=== PATIENT | female | born 1960 ===

== ENCOUNTER 2017-12-10 14:58 | Emergency (ER) | payer MEDICAID ==
[2017-12-10 15:13] VITALS: RESP 16; TEMP 98.4; O2SAT 98
[2017-12-10] MEDS ORDERED: Sodium Chloride 0.9% 500 ML IV STA ×2 (16:07→18:47)
--- NOTE | 2017-12-10 16:13 | ED PDOC ---
HPI: Female Pain Time Seen by Provider: 12/10/17 15:41 Chief Complaint (Nursing): Female Genitourinary Chief Complaint (Provider): Flank pain History Per: Patient History/Exam Limitations: no limitations Additional Complaint(s): Pt reports R flank pain X 1 week, worse in past 3 days, associated with dysuria. Denies fever, nausea, vomiting, abdominal pain, hematuria, vaginal discharge. Has not taken anything for pain. Past Medical History Reviewed: Nursing Documentation, Vital Signs Vital Signs: Last Vital Signs Temp 98.4 F 12/10/17 15:10 Pulse 87 12/10/17 15:10 Resp 16 12/10/17 15:10 BP 115/78 12/10/17 15:10 Pulse Ox 98 12/10/17 15:10 - Medical History PMH: No Chronic Diseases - Surgical History Other surgeries: Hysterectomy - Family History Family History: States: Unknown Family Hx - Social History Current smoker - smoking cessation education provided: No Alcohol: None - Home Medications Home Medications: Ambulatory Orders Medication Instructions Recorded Ciprofloxacin [Cipro] 500 mg PO BID #10 tab 12/10/17 Ibuprofen [Motrin] 600 mg PO Q6H PRN #20 tab 12/10/17 Tamsulosin [Flomax] 0.4 mg PO DAILY #14 cap 12/10/17 oxyCODONE/Acetaminophen [Percocet 1 tab PO Q6H PRN #15 tab 12/10/17 5/325 mg Tab] - Allergies Allergies/Adverse Reactions: Allergies Allergy/AdvReac Type Severity Reaction Status Date / Time No Known Allergies Allergy Verified 12/10/17 15:14 Review of Systems Constitutional: Negative for: Fever, Chills Cardiovascular: Negative for: Chest Pain Respiratory: Negative for: Cough, Shortness of Breath Gastrointestinal: Negative for: Nausea, Vomiting, Abdominal Pain, Diarrhea Genitourinary Female: Positive for: Dysuria. Negative for: Hematuria, Vaginal Discharge, Vaginal Bleeding Musculoskeletal: Positive for: Back Pain Skin: Negative for: Rash, Lesions Neurological: Negative for: Headache, Dizziness Physical Exam - Reviewed Nursing Documentation Reviewed: Yes Vital Signs Reviewed: Yes - Physical Exam Appears: Positive for: Uncomfortable Skin: Positive for: Normal Color, Warm, Dry Eye Exam: Positive for: Normal appearance, EOMI, PERRL Cardiovascular/Chest: Positive for: Regular Rate, Rhythm Respiratory: Positive for: Normal Breath Sounds Gastrointestinal/Abdominal: Positive for: Normal Exam, Bowel Sounds, Soft. Negative for: Tenderness, Guarding, Rebound Back: Positive for: Normal Inspection, R CVA Tenderness. Negative for: L CVA Tenderness, Vertebral Tenderness, Muscle Spasm Extremity: Positive for: Normal ROM Neurologic/Psych: Positive for: Alert, Oriented - Laboratory Results Result Diagrams: 12/10/17 16:53 12/10/17 16:53 - ECG Interpretation Of ECG: NSR @ 85, no ST-T changes. O2 Sat by Pulse Oximetry: 98 Pulse Ox Interpretation: Normal Medical Decision Making Medical Decision Makin yo female with R flank pain and dysuria. - labs - EKG - CT abd/pelvis - IVF - Morphine Accession No. : [id number] Patient Name / ID : LACK FARHAD / [id number] Exam Date : 12/10/2017 18:11:19 ( Approved ) Study Comment : Sex / Age : F / 57Y Creator : Elida Atkinson MD Dictator : Elida Atkinson MD Veterinary Practitioner : Food Service Counter Clerk : Elida Atkinson MD Approver2 : Report Date : 12/10/2017 18:45:24 My Comment : PROCEDURE: CT Abdomen and Pelvis without intravenous contrast HISTORY: R flank pain COMPARISON: None. TECHNIQUE: CT scan of the abdomen and pelvis was performed without administration of intravenous contrast. Oral contrast was not administered. Coronal and sagittal reformatted images were obtained. Radiation dose: Total exam DLP = Total exam DLP = 759.76 mGy-cm. This CT exam was performed using one or more of the following dose reduction techniques: Automated exposure control, adjustment of the mA and/or kV according to patient size, and/or use of iterative reconstruction technique. FINDINGS: LOWER THORAX: The visualized lungs are clear. LIVER: Normal in size. No gross lesion or ductal dilatation. GALLBLADDER AND BILE DUCTS: No calcified gallstones. PANCREAS: Normal in size. No gross lesion or ductal dilatation. SPLEEN: Normal in size. ADRENALS: No discrete nodule. KIDNEYS AND URETERS: There is a 4 mm obstructing stone in the right distal ureter proximal to the UV junction with resultant dilatation of the proximal right ureter, mild hydronephrosis and minimal perinephric fat stranding. There is no left nephrolithiasis or hydronephrosis. VASCULATURE: No aortic aneurysm. BOWEL: Unremarkable. No obstruction. No gross mural thickening. APPENDIX: Normal appendix. PERITONEUM: No free fluid. No free air. LYMPH NODES: No enlarged lymph nodes. BLADDER: Well distended and normal in appearance. REPRODUCTIVE: The uterus is surgically absent. There is a 2.7 x 3.8 cm simple cyst in the left ovary. BONES: No acute fracture. Within normal limits for the patient's age. OTHER FINDINGS: There is a small fat containing inguinal hernia. IMPRESSION: 1. Mild right obstructive uropathy due to a 4 mm obstructing stone in the right distal ureteral proximal to the UV junction. 2. No left nephrolithiasis or hydronephrosis. Disposition - Clinical Impression Clinical Impression: Ureteral calculus, Urinary tract infection - Disposition Referrals: [facility] [Outside] Yahir Clay MD [Staff Provider] - Disposition: Routine/Home Disposition Time: 20:03 Condition: IMPROVED Prescriptions: Ciprofloxacin [Cipro] 500 mg PO BID #10 tab Ibuprofen [Motrin] 600 mg PO Q6H PRN #20 tab PRN Reason: Pain, Moderate (4-7) oxyCODONE/Acetaminophen [Percocet 5/325 mg Tab] 1 tab PO Q6H PRN #15 tab PRN Reason: Pain, Severe (8-10) Tamsulosin [Flomax] 0.4 mg PO DAILY #14 cap Instructions: Kidney Stones (DC), Urinary Tract Infection, Adult (DC), How to Strain Your Urine Forms: [employer] (Romanian) Print Language: KINYARWANDA
[2017-12-10 16:57] LABS: BASO # 0.1 K/uL (0.0-0.2); BASO % 0.8 % (0.0-2.0); EOS # 0.2 K/uL (0.0-0.7); EOS % 1.9 % (0.0-4.0); HEMOGLOBIN 13.1 g/dL (12.0-16.0); LYMPH % 33.1 % (20.0-40.0); MEAN CELL VOLUME 88.7 fl (81.0-99.0); MEAN CORPUSCULAR HGB CONC 32.7 g/dL (33.0-37.0); MEAN PLATELET VOLUME 9.8 fl (7.2-11.7); MONO # 0.6 K/uL (0.0-0.8); MONO % 6.5 % (0.0-10.0); NEUT # 5.3 K/uL (1.8-7.0); NEUT % 57.7 % (50.0-75.0); RBC 4.53 Mil/uL (3.80-5.20); RED CELL DISTRIBUTION WIDTH 14.4 % (11.5-14.5); WHITE BLOOD COUNT 9.2 K/uL (4.8-10.8)
[2017-12-10 17:13] LABS: ALB/GLOB RATIO 1.1 (1.0-2.1); ALBUMIN 4.6 g/dL (3.5-5.0); CALCIUM 9.9 mg/dL (8.4-10.2); GFR AFRICAN-AMERICAN > 60; GFR NON-AFRICAN AMERICAN > 60
[2017-12-10 17:14] LABS: ALT/SGPT 56 U/L (9-52); AST/SGOT 59 U/L (14-36); BLOOD UREA NITROGEN 11 mg/dl (7-17)
[2017-12-10 17:16] VITALS: BP 134/74; PULSE 89
[2017-12-10 17:29] LABS: SQUAMOUS EPITHIAL 1 /hpf (0-5); URINE BACTERIA RARE (<OCC); URINE BILIRUBIN NEGATIVE (NEGATIVE); URINE BLOOD SMALL (NEGATIVE); URINE CLARITY SLIGHTY-CLOUDY (Clear); URINE COLOR YELLOW (YELLOW); URINE GLUCOSE (UA) NEG (Normal); URINE LEUKOCYTE ESTERASE MOD Leu/uL (Negative); URINE PROTEIN NEGATIVE (NEGATIVE); URINE UROBILINOGEN 0.2-1.0 mg/dL (0.2-1.0)
--- NOTE | 2017-12-10 18:46 | CT ---
PROCEDURE: CT Abdomen and Pelvis without intravenous contrast HISTORY: R flank pain COMPARISON: None. TECHNIQUE: CT scan of the abdomen and pelvis was performed without administration of intravenous contrast. Oral contrast was not administered. Coronal and sagittal reformatted images were obtained. Radiation dose: Total exam DLP = Total exam DLP = 759.76 mGy-cm. This CT exam was performed using one or more of the following dose reduction techniques: Automated exposure control, adjustment of the mA and/or kV according to patient size, and/or use of iterative reconstruction technique. FINDINGS: LOWER THORAX: The visualized lungs are clear. LIVER: Normal in size. No gross lesion or ductal dilatation. GALLBLADDER AND BILE DUCTS: No calcified gallstones. PANCREAS: Normal in size. No gross lesion or ductal dilatation. SPLEEN: Normal in size. ADRENALS: No discrete nodule. KIDNEYS AND URETERS: There is a 4 mm obstructing stone in the right distal ureter proximal to the UV junction with resultant dilatation of the proximal right ureter, mild hydronephrosis and minimal perinephric fat stranding. There is no left nephrolithiasis or hydronephrosis. VASCULATURE: No aortic aneurysm. BOWEL: Unremarkable. No obstruction. No gross mural thickening. APPENDIX: Normal appendix. PERITONEUM: No free fluid. No free air. LYMPH NODES: No enlarged lymph nodes. BLADDER: Well distended and normal in appearance. REPRODUCTIVE: The uterus is surgically absent. There is a 2.7 x 3.8 cm simple cyst in the left ovary. BONES: No acute fracture. Within normal limits for the patient's age. OTHER FINDINGS: There is a small fat containing inguinal hernia. IMPRESSION: 1. Mild right obstructive uropathy due to a 4 mm obstructing stone in the right distal ureteral proximal to the UV junction. 2. No left nephrolithiasis or hydronephrosis.
[2017-12-10] MEDS ORDERED: cefTRIAXone (Rocephin) 1 gm Inj ONE (18:47)
--- NOTE | 2017-12-11 08:49 | CARD ---
APPROVED REPORT EKG Measurement Heart [id number] <Conclusion> Normal sinus rhythm Inferior infarct, age undetermined Abnormal ECG
== END 2017-12-10 21:30 | disposition home or self-care (01) ==
LOC: H.ER 14:58
DX: N20.1 Calculus of ureter (principal); N39.0 Urinary tract infection, site not specified
CPT/HCPCS: 74176; 80053; 81003; 85025; 87086; 87181; 93005; 96361; 96365; 96375; 99283; J0696; J2270; J7040